=== PATIENT | female | born 1970 | race Hispanic/Latino ===

== ENCOUNTER 2018-01-07 10:11 | Emergency (ER) | payer BC, SELFPAY ==
[2018-01-07] MEDS ORDERED: DEXAMETHASONE 10 MG/ML VIAL ONE (10:58)
[2018-01-07] MEDS ORDERED: CYCLOBENZAPRINE 10 MG TAB ONE (10:58)
[2018-01-07] MEDS ORDERED: MORPHINE 4 MG/ML SYR ONE (10:59)
[2018-01-07] MEDS ORDERED: MEPERIDINE HCL 25 MG/0.5 ML ONE (12:18)
[2018-01-07] MEDS ORDERED: NA CHLORIDE 0.9% 500 ML ONE (12:23)
--- NOTE | 2018-01-07 12:44 | RAD REPORT ---
EXAM DESCRIPTION: RAD - Lumbar Spine 3 Views - 01/07/2018 11:38 am CLINICAL HISTORY: Back pain, lifting injury COMPARISON: None. FINDINGS: A three-view lumbar spine examination was performed. Lumbar bodies are normal in height an d normal in AP alignment. Very minimal left convex curvature may be secondary to muscle spasm. No fra cture or acute bony process seen. No disc space narrowing. No significant facet degenerative change. No pars defects identified. IMPRESSION: Negative Lumbar Spine examination for acute or significant finding.
--- NOTE | 2018-01-07 13:34 | EDPHYS ---
Physician Documentation [facility] Name: Gladis Nunez Age: 47 yrs Sex: Female : 1970 Arrival Date: 01/07/2018 Time: 10:13 Bed 16 Private MD: out of town, doctor ED Physician Mir Benito HPI: 01/07 10:50 This 47 yrs old Female presents to ER via Wheelchair with complaints of Back rn Pain. 10:50 The patient presents with pain that is acute. The symptoms are located in the low back. rn Onset: The symptoms/episode began/occurred yesterday. The pain radiates to the right leg. Associated signs and symptoms: Pertinent positives: numbness, tingling, Pertinent negatives: abdominal pain, fever, incontinence, urinary retention, weakness. Modifying factors: The patient symptoms are alleviated by nothing, the patient symptoms are aggravated by any movement. Severity of symptoms: At their worst the symptoms were moderate, in the emergency department the symptoms are unchanged. The patient has experienced similar episodes in the past. Reports low back pain, intermittent for years, yesterday picked up small pot of water, hurts to move, no bowel/bladder problems, no weakness, + right leg with intermittent numbness and tingling, has happened multiple times in past.. 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 - Social history:: Smoking status: Patient/guardian denies using tobacco. - Ebola Screening: : Patient denies travel to an Ebola-affected area in the 21 days before illness onset. - Family history:: not pertinent. - Hospitalizations: : No recent hospitalization is reported. ROS: 10:50 Constitutional: Negative for fever, chills, and weight loss, Eyes: Negative for injury, rn pain, redness, and discharge, Neck: Negative for injury, pain, and swelling, Cardiovascular: Negative for chest pain, palpitations, and edema, Respiratory: Negative for shortness of breath, cough, wheezing, and pleuritic chest pain, Abdomen/GI: Negative for abdominal pain, nausea, vomiting, diarrhea, and constipation, Back: + back pain MS/Extremity: Negative for injury and deformity, Skin: Negative for injury, rash, and discoloration, Neuro: Negative for headache, weakness, and seizure. Exam: 10:50 Constitutional: This is a well developed, well nourished patient who is awake, alert, rn appears uncomfortable Back: No costovertebral tenderness. Painful ROM, + lower lumbar perispinal tenderness MS/ Extremity: Pulses equal, no cyanosis. Neurovascular intact. Full, normal range of motion. Equal circumference. Neuro: Awake and alert, GCS 15, oriented to person, place, time, and situation. Cranial nerves II-XII grossly intact. Motor strength 5/5 in all extremities. Sensory grossly intact. Vital Signs: 10:35 BP 121 / 75; Pulse 70; Resp 18; Temp 98.1(O); Pulse Ox 98% on R/A; Weight 99.79 kg (R); aj1 Height 5 ft. 8 in. (172.72 cm) (R); Pain 10/10; 11:32 BP 124 / 74; Pulse 63; Resp 17; Pulse Ox 99% on R/A; rb1 12:30 BP 101 / 55; Pulse 58; Resp 18; Pulse Ox 98% on R/A; rb1 13:30 BP 110 / 60; Pulse 66; Resp 19; Pulse Ox 95% on R/A; Pain 5/10; rb1 10:35 Body Mass Index 33.45 (99.79 kg, 172.72 cm) aj1 MDM: 10:37 Patient medically screened. rn 13:32 Differential diagnosis: arthritis, chronic back pain, Fatigue Osteoarthritis ruptured rn disc, sprain. Data reviewed: vital signs, nurses notes, radiologic studies, plain films, and as a result, I will discharge patient. Counseling: I had a detailed discussion with the patient and/or guardian regarding: the historical points, exam findings, and any diagnostic results supporting the discharge/admit diagnosis, radiology results, the need for outpatient follow up, to return to the emergency department if symptoms worsen or persist or if there are any questions or concerns that arise at home. Response to treatment: the patient's symptoms have markedly improved after treatment, and as a result, I will discharge patient. Special discussion: I discussed with the patient/guardian in detail that at this point there is no indication for admission to the hospital. It is understood, however, that if the symptoms persist or worsen the patient needs to return immediately for re-evaluation. Based on the history and exam findings, there is no indication for further emergent testing or inpatient evaluation. I discussed with the patient/guardian the need to see the back specialist for further evaluation of the symptoms. 01/07 10:49 Order name: XRAY Lumbar Spine (3 Views); Complete Time: 12:46 rn 01/07 10:49 Order name: IV Start; Complete Time: 11:08 rn Administered Medications: 10:55 Drug: Flexeril 10 mg Route: PO; rb1 11:30 Follow up: Response: No adverse reaction; Pain is decreased rb1 10:58 Drug: morphine 4 mg Route: IVP; Site: left antecubital; rb1 11:30 Follow up: Response: No adverse reaction; Pain is decreased rb1 10:58 Drug: Decadron - Dexamethasone 10 mg Route: IVP; Site: left antecubital; rb1 11:30 Follow up: Response: No adverse reaction; Pain is decreased rb1 12:22 Drug: NS 0.9% 500 ml Route: IV; Rate: bolus; Site: left antecubital; rb1 13:05 Follow up: IV Status: Completed infusion rb1 14:05 Not Given (BP remained too low to administer per provider.): Demerol 25 mg IVP once rb1 Disposition: 01/07/18 13:34 Discharged to Home. Impression: Low back pain, Muscle spasm of back. - Condition is Stable. - Discharge Instructions: Back Pain, Adult, Muscle Cramps and Spasms. - Prescriptions for Tylenol- Codeine #3 300-30 mg Oral Tablet - take 1 tablet by ORAL route every 6 hours As needed; 20 tablet. Cyclobenzaprine 10 mg Oral Tablet - take 1 tablet by ORAL route every 8 hours As needed; 20 tablet. Medrol (Elvin) 4 mg Oral Tablets, Dose Pack - take 1 tablet by ORAL route as directed - follow package instructions; 1 packet. - Medication Reconciliation Form, Thank You Letter, Antibiotic Education, Prescription Opioid Use form. - Follow up: Private Physician; When: As needed; Reason: Recheck today's complaints, Re-evaluation by your physician. - Problem is an acute exacerbation. - Symptoms have improved. Signatures: Dispatcher [employer] EDYudy Dunn RN RN aj1 Mir Benito MD MD rn Barber, Rebecca RN RN rb1 Corrections: (The following items were deleted from the chart) 14:11 13:34 01/07/2018 13:34 Discharged to Home. Impression: Low back pain; Muscle spasm of rb1 back. Condition is Stable. Forms are Medication Reconciliation Form, Thank You Letter, Antibiotic Education, Prescription Opioid Use. Follow up: Private Physician; When: As needed; Reason: Recheck today's complaints, Re-evaluation by your physician. Problem is an acute exacerbation. Symptoms have improved. rn
--- NOTE | 2018-01-07 13:34 | ER ---
Nurse's Notes [facility] Name: Gladis Nunez Age: 47 yrs Sex: Female : 1970 Arrival Date: 01/07/2018 Time: 10:13 Bed 16 Private MD: out of town, doctor Diagnosis: Low back pain;Muscle spasm of back Presentation: 01/07 10:28 Presenting complaint: Patient states: Yesterday around noon she was picking up a bucket aj1 filled with water and her back gave out and the pain has gotten progressively worse since. Patient states she tried taking Tylenol at home but it isn't helping, and she isn't able to walk because of the pain. Reports tingling in both legs and weakness in the right leg. Transition of care: patient was not received from another setting of care. Onset of symptoms was January 06, 2018 at 12:00. Risk Assessment: Do you want to hurt yourself or someone else? Patient reports no desire to harm self or others. Initial Sepsis Screen: Does the patient meet any 2 criteria? No. Patient's initial sepsis screen is negative. Does the patient have a suspected source of infection? No. Patient's initial sepsis screen is negative. Care prior to arrival: None. 10:28 Method Of Arrival: Wheelchair aj1 10:28 Acuity: MARY 4 aj1 Triage Assessment: 10:33 General: Appears in no apparent distress. uncomfortable, Behavior is calm, cooperative, aj1 appropriate for age. Pain: Complains of pain in mid back area Pain radiates to low back area and sacrum Pain currently is 10 out of 10 on a pain scale. Neuro: Level of Consciousness is awake, alert, obeys commands, Reports weakness in right leg tingling in both legs. Cardiovascular: Patient's skin is warm and dry. Respiratory: Airway is patent Respiratory effort is even, unlabored, Respiratory pattern is regular, symmetrical. Musculoskeletal: Range of motion: limited in left hip and right hip. 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 - Social history:: Smoking status: Patient/guardian denies using tobacco. - Ebola Screening: : Patient denies travel to an Ebola-affected area in the 21 days before illness onset. - Family history:: not pertinent. - Hospitalizations: : No recent hospitalization is reported. Screenin:40 Abuse screen: Denies threats or abuse. Nutritional screening: No deficits noted. rb1 Tuberculosis screening: No symptoms or risk factors identified. Fall Risk None identified. Assessment: 10:40 General: Appears uncomfortable, Behavior is crying. Pain: Complains of pain in right rb1 lower back Pain radiates to right leg Pain currently is 10 out of 10 on a pain scale. Pain began 1 day ago. Neuro: Level of Consciousness is awake, alert, obeys commands, Oriented to person, place, time, situation, Reports dizziness, numbness weakness in right leg. Cardiovascular: Capillary refill < 3 seconds is brisk in bilateral fingers. Respiratory: Airway is patent Respiratory effort is even, unlabored, Respiratory pattern is regular, symmetrical. GI: No signs and/or symptoms were reported involving the gastrointestinal system. : No signs and/or symptoms were reported regarding the genitourinary system. Derm: Skin is dry, Skin is normal, Skin temperature is warm. Musculoskeletal: Range of motion: intact in all extremities. 11:09 Reassessment: pt went to x-ray. rb1 11:30 Reassessment: Patient appears in no apparent distress at this time. Patient and/or rb1 family updated on plan of care and expected duration. Pain level reassessed. Patient is alert, oriented x 3, equal unlabored respirations, skin warm/dry/pink. 12:01 Reassessment: Patient appears in no apparent distress at this time. Patient and/or rb1 family updated on plan of care and expected duration. Pain level reassessed. Patient is alert, oriented x 3, equal unlabored respirations, skin warm/dry/pink. Pt. refused the Demerol at this time, will continue to monitor. 12:13 Reassessment: Notified provider of BP 102/64 before administering the Demerol. Received rb1 order to Hold the Demerol until the pt. SBP >115. 13:00 Reassessment: Patient appears in no apparent distress at this time. No changes from rb1 previously documented assessment. 14:00 Reassessment: Patient appears in no apparent distress at this time. Patient and/or rb1 family updated on plan of care and expected duration. Pain level reassessed. Patient is alert, oriented x 3, equal unlabored respirations, skin warm/dry/pink. at bedside. Vital Signs: 10:35 BP 121 / 75; Pulse 70; Resp 18; Temp 98.1(O); Pulse Ox 98% on R/A; Weight 99.79 kg (R); aj1 Height 5 ft. 8 in. (172.72 cm) (R); Pain 10/10; 11:32 BP 124 / 74; Pulse 63; Resp 17; Pulse Ox 99% on R/A; rb1 12:30 BP 101 / 55; Pulse 58; Resp 18; Pulse Ox 98% on R/A; rb1 13:30 BP 110 / 60; Pulse 66; Resp 19; Pulse Ox 95% on R/A; Pain 5/10; rb1 10:35 Body Mass Index 33.45 (99.79 kg, 172.72 cm) aj1 ED Course: 10:13 Patient arrived in ED. sb2 10:13 out of town, doctor is Private Physician. sb2 10:33 Triage completed. aj1 10:35 Arm band placed on Patient placed in an exam room. aj1 10:37 Mir Benito MD is Attending Physician. rn 10:40 Patient has correct armband on for positive identification. Bed in low position. Call rb1 light in reach. Side rails up X 1. Pulse ox on. NIBP on. 10:41 Maribell Landon, RN is Primary Nurse. rb1 10:58 Inserted saline lock: 22 gauge in left antecubital area, using aseptic technique. rb1 11:38 XRAY Lumbar Spine (3 Views) In Process Unspecified. EDMS 14:00 No provider procedures requiring assistance completed. IV discontinued, intact, rb1 bleeding controlled, No redness/swelling at site. Pressure dressing applied. Administered Medications: 10:55 Drug: Flexeril 10 mg Route: PO; rb1 11:30 Follow up: Response: No adverse reaction; Pain is decreased rb1 10:58 Drug: morphine 4 mg Route: IVP; Site: left antecubital; rb1 11:30 Follow up: Response: No adverse reaction; Pain is decreased rb1 10:58 Drug: Decadron - Dexamethasone 10 mg Route: IVP; Site: left antecubital; rb1 11:30 Follow up: Response: No adverse reaction; Pain is decreased rb1 12:22 Drug: NS 0.9% 500 ml Route: IV; Rate: bolus; Site: left antecubital; rb1 13:05 Follow up: IV Status: Completed infusion rb1 14:05 Not Given (BP remained too low to administer per provider.): Demerol 25 mg IVP once rb1 Outcome: 13:34 Discharge ordered by . rn 14:00 Discharged to home via wheelchair, with family. rb1 14:00 Condition: stable 14:00 Discharge instructions given to patient, Instructed on discharge instructions, follow up and referral plans. medication usage, Demonstrated understanding of instructions, follow-up care, medications, Prescriptions given X 3. 14:00 Patient left the ED. rb1 Signatures: Dispatcher [employer] EDMS Yudy Falcon RN RN aj1 Mir Benito MD MD rn Barber, Rebecca, RN RN rb1 aNncy Samuels sb2 Corrections: (The following items were deleted from the chart) 10:35 10:28 Presenting complaint: Patient states: Yesterday around noon she was picking up a aj1 bucket filled with water and her back gave out and the pain has gotten progressively worse since. Patient states she tried taking Tylenol at home but it isn't helping, and she isn't able to walk because of the pain. aj1 12:01 10:58 Decadron - Dexamethasone 10 mg IVP in left antecubital rb1 rb1 12:01 11:00 Response: No adverse reaction; Pain is decreased rb1 rb1 14:12 14:11 Patient left the ED. rb1 rb1
== END 2018-01-07 14:11 | disposition home or self-care (01) ==
LOC: ER 10:11
DX: M62.830 Muscle spasm of back (principal); K21.9 Gastro-esophageal reflux disease without esophagitis; Z88.0 Allergy status to penicillin; Z88.1 Allergy status to other antibiotic agents
CPT/HCPCS: 72100; 96361; 96374; 96375; 99284; J1100; J2175

== ENCOUNTER 2018-08-10 08:38 | Observation (INO) | payer SELFPAY ==
[2018-08-10] MEDS ORDERED: ONDANSETRON 4 MG/2 ML VIAL ONE (09:21)
[2018-08-10 09:25] LABS: Urine Specific Gravity 1.015 (1.005-1.030)
[2018-08-10 09:26] LABS: Urine Blood 3+ (NEG); Urine Glucose NEGATIVE (NEG); Urine Protein NEGATIVE (NEG); Urine Specific Gravity 1.015 (1.005-1.030); Urine pH 5.5 (5.0-7.0)
[2018-08-10 09:35] LABS: Absolute Lymphocytes (CBC) 2.3 K/uL (0.7-4.9); Absolute Monocytes 0.5 K/uL (0.1-1.3); Absolute Neutrophil 2.4 K/uL (1.8-8.0); Basophils % 0.7 % (0-1.3); Eosinophils % 3.8 % (0-4.4); Hematocrit 43.9 % (36.0-45.0); MPV 11.5 fL (7.6-11.3); RBC Red Blood Cell Count 4.81 M/uL (3.86-4.86)
[2018-08-10 09:41] LABS: Protime INR 1.01
[2018-08-10] MEDS ORDERED: ASPIRIN 81 MG CHEWABLE TABLET ONE (09:41)
[2018-08-10] MEDS ORDERED: FAMOTIDINE 20 MG/2 ML VIAL IV ONE (09:41)
[2018-08-10 09:47] LABS: ALT/SGPT 64 U/L (12-78); AST/SGOT 33 U/L (15-37); Albumin 3.8 g/dL (3.4-5.0); Alkaline Phosphatase 93 U/L (45-117); BUN Blood Urea Nitrogen 11 mg/dL (7-18); Bicarbonate 28 mmol/L (21-32); Bilirubin Direct 0.1 mg/dL (0-0.2); Bilirubin Total 0.5 mg/dL (0.2-1.0); Glucose Level 97 mg/dL (74-106); Magnesium 2.1 mg/dL (1.8-2.4); NT PRO-BNP 22 pg/mL (<125); Potassium 3.8 mmol/L (3.5-5.1); Protein, Total 7.8 g/dL (6.4-8.2); Sodium Level 141 mmol/L (136-145); Troponin (Emerg Dept Use Only) < 0.02 ng/mL (0.0-0.045)
--- NOTE | 2018-08-10 10:29 | RAD REPORT ---
EXAM DESCRIPTION: RAD - Chest Single View - 08/10/2018 10:02 am CLINICAL HISTORY: Chest tightness COMPARISON: January 2016 TECHNIQUE: AP portable chest image was obtained 0929 hours . FINDINGS: Lungs are clear. Heart and vasculature are normal. No measurable pleural effusion and no p neumothorax. No acute bony abnormality seen. No acute aortic findings suspected. IMPRESSION: No acute cardiopulmonary process. No significant interval change.
[2018-08-10] MEDS ORDERED: FENTANYL CITR 100 MCG/2 ML ONE (11:00)
[2018-08-10] MEDS ORDERED: NA CHLORIDE 0.9% 1,000 ML ONE (11:00)
--- NOTE | 2018-08-10 12:25 | ER ---
Nurse's Notes [facility] Name: Gladis Nunez Age: 48 yrs Sex: Female : 1970 Arrival Date: 08/10/2018 Time: 08:41 Bed 6 Private MD: Diagnosis: Chest pain, unspecified Presentation: 08/10 08:53 Presenting complaint: Patient states: CHEST TIGHTNESS WITH DIZZINESS AND SOB. bp Transition of care: patient was not received from another setting of care. Onset of symptoms was August 09, 2018 at 09:00. Risk Assessment: Do you want to hurt yourself or someone else? Patient reports no desire to harm self or others. Initial Sepsis Screen: Does the patient meet any 2 criteria? No. Patient's initial sepsis screen is negative. Does the patient have a suspected source of infection? No. Patient's initial sepsis screen is negative. Care prior to arrival: None. 08:53 Method Of Arrival: Ambulatory bp 08:53 Acuity: MARY 3 bp Triage Assessment: 08:55 General: Appears in no apparent distress. comfortable, Behavior is cooperative, bp appropriate for age, anxious. Pain: Complains of pain in mid-sternal area Quality of pain is described as squeezing. EENT: No deficits noted. Neuro: Level of Consciousness is awake, alert, obeys commands, Oriented to person, place, time, situation, Appropriate for age. Cardiovascular: Rhythm is sinus rhythm. Respiratory: Airway is patent Respiratory effort is even, unlabored, Respiratory pattern is regular, symmetrical. GI: No signs and/or symptoms were reported involving the gastrointestinal system. : No signs and/or symptoms were reported regarding the genitourinary system. Derm: No deficits noted. Musculoskeletal: No deficits noted. 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 - Social history:: Smoking status: Patient/guardian denies using tobacco. - Ebola Screening: : Patient negative for fever greater than or equal to 101.5 degrees Fahrenheit, and additional compatible Ebola Virus Disease symptoms Patient denies exposure to infectious person Patient denies travel to an Ebola-affected area in the 21 days before illness onset No symptoms or risks identified at this time. Screenin:00 Abuse screen: Denies threats or abuse. Denies injuries from another. Nutritional bp screening: No deficits noted. Tuberculosis screening: No symptoms or risk factors identified. Fall Risk None identified. Assessment: 09:00 Pain: Pain does not radiate. Pain began 1 day ago. bp 09:56 Reassessment: ALL CURRENT ORDERS COMPLETED, VS STABLE ON MONITOR. bp Vital Signs: 08:55 BP 129 / 65; Pulse 71; Resp 12; Temp 98; Pulse Ox 100% ; Weight 100.7 kg; Height 5 ft. bp 8 in. (172.72 cm); 09:18 BP 124 / 63 Supine; Pulse 77; Resp 30; Pulse Ox 97% on R/A; dh3 09:20 BP 136 / 79 Sitting; Pulse 80; Resp 14; Pulse Ox 95% on R/A; dh3 09:22 BP 125 / 73 Standing; Pulse 80; Resp 19; Pulse Ox 96% on R/A; dh3 09:55 BP 105 / 51; Pulse 61; Resp 24; Pulse Ox 98% ; bp 10:30 BP 105 / 49; Pulse 68; Resp 15; Pulse Ox 96% ; bp 12:03 BP 110 / 72; Pulse 68; Resp 17; Pulse Ox 96% ; bp 14:00 BP 106 / 44; Pulse 64; Resp 10; Pulse Ox 100% ; bp 08:55 Body Mass Index 33.75 (100.70 kg, 172.72 cm) bp ED Course: 08:41 Patient arrived in ED. mr 08:48 Gavino Vasques RN is Primary Nurse. hj 08:51 Jose Arceo PA is PHCP. cp 08:51 Jose Schaeffer MD is Attending Physician. cp 08:54 Triage completed. bp 08:55 Arm band placed on. bp 09:00 Patient has correct armband on for positive identification. Bed in low position. Call bp light in reach. Side rails up X2. athletic monitor on. Pulse ox on. NIBP on. 09:05 Gavino Vasques RN is Primary Nurse. hj 09:17 Jah Goldman RN is Primary Nurse. bp 09:17 Initial lab(s) drawn, by me, sent to lab. Inserted saline lock: 20 gauge in right dh3 antecubital area, using aseptic technique. Blood collected. 09:21 EKG done, by ED staff, reviewed by Jose CORRALES. at1 09:59 X-ray completed. Portable x-ray completed in exam room. Patient tolerated procedure sw well. 10:02 XRAY Chest (1 view) In Process Unspecified. EDSC 12:24 Africa Medina MD is Hospitalizing Provider. cp 14:09 No provider procedures requiring assistance completed. Patient admitted, IV remains in bp place. Patient maintains SpO2 saturation greater than 95% on room air. Administered Medications: 09:15 Drug: Zofran 4 mg Route: IVP; Site: right antecubital; bp 10:59 Follow up: Response: Nausea is decreased bp 09:20 Drug: Aspirin Chewable Tablet 324 mg Route: PO; bp 10:58 Follow up: Response: No adverse reaction bp 09:20 Drug: Pepcid 20 mg Route: IVP; Site: right antecubital; bp 10:59 Follow up: Response: Nausea is decreased bp 10:50 Drug: NS 0.9% 1000 ml Route: IV; Rate: 1 bolus; Site: right antecubital; bp 14:11 Follow up: IV Status: Completed infusion; IV Intake: 1000ml bp 10:50 Drug: fentaNYL (PF) 25 mcg Route: IVP; Site: right antecubital; bp 14:11 Follow up: Response: No adverse reaction; Pain is decreased bp Intake: 14:11 IV: 1000ml; Total: 1000ml. bp Outcome: 12:25 Decision to Hospitalize by Provider. cp 14:10 Admitted to Tele accompanied by zhang, family with patient, via wheelchair, room 210, bp with chart, Report called to ANTWAN REAVES 14:10 Condition: stable 14:10 Instructed on the need for admit. 14:35 Patient left the ED. bp Signatures: Dispatcher [employer] EDSC Fred Scarlet YanezMya, timber packer EKG Tat1 Sierra Jacques Henry, RN RN Jose Busch PA PA Snehal Gaviria [facility] Jah Goldman, RN RN bp
--- NOTE | 2018-08-10 12:26 | EDPHYS ---
Physician Documentation [facility] Name: Gladis Nunez Age: 48 yrs Sex: Female : 1970 Arrival Date: 08/10/2018 Time: 08:41 Bed 6 Private MD: Jose Pearson HPI: 08/10 09:06 This 48 yrs old Female presents to ER via Ambulatory with complaints of Chest cp Tightness, Shortness Of Breath. 09:06 The patient or guardian reports chest pain that is located primarily in the substernal cp area. Onset: last night. The pain does not radiate. Associated signs and symptoms: Pertinent positives: dizziness, nausea. The chest pain is described as a pressure. 09:06 Duration: The patient or guardian reports multiple episodes, with no pattern. cp BUSINESS INTELLIGENCE ARCHITECT: 08:55 LMP N/A - Irregular menses bp Historical: - Allergies: 08:55 Keflex (Hives); bp 08:55 PENICILLINS (Hives); bp - Home Meds: 08:55 Multiple Vitamins Oral tab daily [Active]; bp - PMHx: 08:55 GERD; Herniated disc; bp - Immunization history:: Adult Immunizations up to date. - Social history:: Smoking status: Patient/guardian denies using tobacco. - Ebola Screening: : Patient negative for fever greater than or equal to 101.5 degrees Fahrenheit, and additional compatible Ebola Virus Disease symptoms Patient denies exposure to infectious person Patient denies travel to an Ebola-affected area in the 21 days before illness onset No symptoms or risks identified at this time. ROS: 09:10 Constitutional: Negative for body aches, chills, fever, poor PO intake. cp 09:10 Eyes: Negative for injury, pain, redness, and discharge. cp 09:10 ENT: Negative for drainage from ear(s), ear pain, sore throat, difficulty swallowing, difficulty handling secretions. 09:10 Cardiovascular: Positive for chest pain, of the mid-sternal area, Negative for edema, palpitations. 09:10 Respiratory: Positive for shortness of breath, Negative for cough, wheezing. 09:10 Abdomen/GI: Positive for nausea, Negative for abdominal pain, vomiting, diarrhea, constipation. 09:10 Back: Negative for pain at rest, pain with movement, radiated pain. 09:10 : Negative for urinary symptoms. 09:10 Skin: Negative for cellulitis, rash. 09:10 Neuro: Positive for dizziness, Negative for altered mental status, headache, syncope, near syncope, weakness. 09:10 All other systems are negative. Exam: 09:05 ECG was reviewed by the Attending Physician. cp 09:15 Constitutional: The patient appears in no acute distress, alert, awake, cp non-diaphoretic, non-toxic, well developed, well nourished. 09:15 Head/Face: Normocephalic, atraumatic. Eyes: Pupils equal round and reactive to light, cp extra-ocular motions intact. Lids and lashes normal. Conjunctiva and sclera are non-icteric and not injected. Cornea within normal limits. Periorbital areas with no swelling, redness, or edema. ENT: Nares patent. No nasal discharge, no septal abnormalities noted. Tympanic membranes are normal and external auditory canals are clear. Oropharynx with no redness, swelling, or masses, exudates, or evidence of obstruction, uvula midline. Mucous membranes moist. 09:15 Neck: External neck: is normal, ROM/movement: is normal, is supple, without pain, no range of motions limitations, no meningismus, no nuchal rigidity. 09:15 Chest/axilla: Inspection: normal, Palpation: is normal, no crepitus, no tenderness. 09:15 Cardiovascular: Rate: normal, Rhythm: regular, Pulses: Pulses are 2+ in right radial artery and left radial artery. Heart sounds: murmur, not appreciated, Edema: JVD: is not appreciated. 09:15 Respiratory: the patient does not display signs of respiratory distress, Respirations: normal, no use of accessory muscles, no retractions, no splinting, no tachypnea, labored breathing, is not present, Breath sounds: are clear throughout, no decreased breath sounds, no stridor, no wheezing. 09:15 Abdomen/GI: Inspection: abdomen appears normal, Bowel sounds: normal, in all quadrants, Palpation: abdomen is soft and non-tender, in all quadrants. 09:15 Back: pain, is absent, ROM is normal. 11:10 ECG was reviewed by the Attending Physician. Vital Signs: 08:55 BP 129 / 65; Pulse 71; Resp 12; Temp 98; Pulse Ox 100% ; Weight 100.7 kg; Height 5 ft. bp 8 in. (172.72 cm); 09:18 BP 124 / 63 Supine; Pulse 77; Resp 30; Pulse Ox 97% on R/A; dh3 09:20 BP 136 / 79 Sitting; Pulse 80; Resp 14; Pulse Ox 95% on R/A; dh3 09:22 BP 125 / 73 Standing; Pulse 80; Resp 19; Pulse Ox 96% on R/A; dh3 09:55 BP 105 / 51; Pulse 61; Resp 24; Pulse Ox 98% ; bp 10:30 BP 105 / 49; Pulse 68; Resp 15; Pulse Ox 96% ; bp 12:03 BP 110 / 72; Pulse 68; Resp 17; Pulse Ox 96% ; bp 14:00 BP 106 / 44; Pulse 64; Resp 10; Pulse Ox 100% ; bp 08:55 Body Mass Index 33.75 (100.70 kg, 172.72 cm) bp MDM: 08:51 Patient medically screened. cp 11:10 Data reviewed: vital signs, nurses notes, lab test result(s), EKG, radiologic studies, cp plain films. Test interpretation: by ED physician or midlevel provider: ECG, plain radiologic studies. 11:10 Response to treatment: the patient's symptoms have markedly improved after treatment, cp VSS. Chest pain improved. Will admit for observation. Physician consultation: Wm CORRALES was called at 11:00, was contacted at 11:00, regarding admission, to the telemetry unit. patient's condition. 08/10 09:04 Order name: Basic Metabolic Panel; Complete Time: 10:36 cp 08/10 10:37 Interpretation: Normal except: CL 108; GFR 78. cp 08/10 09:04 Order name: CBC with Diff; Complete Time: 10:36 cp 08/10 10:37 Interpretation: Normal except: MPV 11.5. cp 08/10 09:04 Order name: LFT's; Complete Time: 10:36 cp 08/10 09:04 Order name: Magnesium; Complete Time: 10:36 cp 08/10 09:04 Order name: NT PRO-BNP; Complete Time: 10:36 cp 08/10 09:04 Order name: PT-INR; Complete Time: 10:36 cp 08/10 09:04 Order name: Troponin (emerg Dept Use Only); Complete Time: 10:36 cp 08/10 09:04 Order name: XRAY Chest (1 view); Complete Time: 10:36 cp 08/10 09:17 Order name: Urine Dipstick--Ancillary (enter results) eb 08/10 09:19 Order name: Urine --Ancillary (enter results); Complete Time: 10:36 eb 08/10 09:04 Order name: EKG; Complete Time: 09:05 cp 08/10 09:04 Order name: Cardiac monitoring; Complete Time: 09:05 cp 08/10 09:04 Order name: EKG - Nurse/Tech; Complete Time: 09:05 cp 08/10 09:04 Order name: IV Saline Lock; Complete Time: 09:16 cp 08/10 09:04 Order name: Labs collected and sent; Complete Time: 09:16 cp 08/10 09:04 Order name: O2 Per Protocol; Complete Time: 09:16 cp 08/10 09:04 Order name: O2 Sat Monitoring; Complete Time: 09:16 cp 08/10 09:05 Order name: Urine Dipstick-Ancillary (obtain specimen); Complete Time: 09:16 cp 08/10 09:05 Order name: Urine Test (obtain specimen); Complete Time: 09:16 cp 08/10 09:05 Order name: Orthostatics; Complete Time: 09:16 cp 08/10 10:42 Order name: EKG; Complete Time: 10:42 cp 08/10 10:42 Order name: EKG - Nurse/Tech; Complete Time: 10:59 cp 08/10 12:36 Order name: CONS Physician Consult EDMS EC:05 Rate is 76 beats/min. Rhythm is regular. [place] interval is normal. QRS interval is normal. cp QT interval is normal. T waves are Inverted in lead III. Interpreted by me. Reviewed by me. 11:10 Rate is 68 beats/min. Rhythm is regular. [place] interval is normal. QRS interval is normal. cp QT interval is normal. T waves are Inverted in lead III. Interpreted by me. Reviewed by me. Administered Medications: 09:15 Drug: Zofran 4 mg Route: IVP; Site: right antecubital; bp 10:59 Follow up: Response: Nausea is decreased bp 09:20 Drug: Aspirin Chewable Tablet 324 mg Route: PO; bp 10:58 Follow up: Response: No adverse reaction bp 09:20 Drug: Pepcid 20 mg Route: IVP; Site: right antecubital; bp 10:59 Follow up: Response: Nausea is decreased bp 10:50 Drug: NS 0.9% 1000 ml Route: IV; Rate: 1 bolus; Site: right antecubital; bp 14:11 Follow up: IV Status: Completed infusion; IV Intake: 1000ml bp 10:50 Drug: fentaNYL (PF) 25 mcg Route: IVP; Site: right antecubital; bp 14:11 Follow up: Response: No adverse reaction; Pain is decreased bp Disposition: 08/10/18 12:25 Hospitalization ordered by Africa Medina for Observation. Preliminary diagnosis is Chest pain, unspecified. - Bed requested for Telemetry/MedSurg (observation). - Status is Observation. bp - Condition is Stable. - Problem is new. - Symptoms have improved. UTI on Admission? No Addendum: 08/13/2018 07:08 Co-signature as Attending Physician, Jose Schaeffer MD I agree with the assessment and c vega plan of care. Signatures: Dispatcher [employer] EDME Jose Schaeffer MD MD cha Page, Corey, PA PA cp Jah Goldman, RN RN bp Vanesa Alberto Corrections: (The following items were deleted from the chart) 08/10 13:16 12:25 Hospitalization Ordered by Africa Medina MD for Observation. Preliminary diagnosis eb is Chest pain, unspecified. Bed requested for Telemetry/MedSurg (observation). Status is Observation. Condition is Stable. Problem is new. Symptoms have improved. UTI on Admission? No. cp 14:35 13:16 08/10/2018 12:25 Hospitalization Ordered by Africa Medina MD for Observation. bp Preliminary diagnosis is Chest pain, unspecified. Bed requested for Telemetry/MedSurg (observation). Status is Observation. Condition is Stable. Problem is new. Symptoms have improved. UTI on Admission? No. eb
--- NOTE | 2018-08-10 12:46 | P.HP ---
Certification for Inpatient Patient admitted to: Observation With expected LOS: <2 Midnights Patient will require the following post-hospital care: None Practitioner: I am a practitioner with admitting privileges, knowledge of patient current condition, hospital course, and medical plan of care. Services: Services provided to patient in accordance with Admission requirements found in Title 42 Section 412.3 of the Code of Federal Regulations Patient History Date of Service: 08/10/18 Primary Care Provider: [facility] Reason for admission: Chest Pain History of Present Illness: This is a 48 y/o F with history of SC, High cholesterol and GERD. Stated that she started to have indigestion last night that was not settled by her medications. Had chest pressure this AM that woke her from sleep. No radiation, n/v, diaphoresis. Came to hospital for evaluation at that time. ECG and first troponin negative. Patient feeling better but still with chest pressure that comes and goes. Allergies cephalexin monohydrate [From Keflex] Allergy (Unverified 05/20/14 01:56) Unknown Penicillins Allergy (Unverified 05/20/14 01:56) Unknown Home medications list reviewed: Yes - Past Medical/Surgical History Has patient received pneumonia vaccine in the past: No Diabetic: No -: GERD -: High Cholesterol -: SC -: -: Cholecystectomy - Social History Smoking Status: Never smoker Smoking therapy provided: No Alcohol use: No CD- Drugs: No Caffeine use: Yes Place of Residence: Home Review of Systems General: Unremarkable Eyes: Unremarkable ENT: Unremarkable Respiratory: Unremarkable Cardiovascular: Chest Pain Gastrointestinal: Unremarkable Musculoskeletal: Unremarkable Integumentary: Unremarkable Neurological: Unremarkable Lymphatics: Unremarkable Physical Examination - Vital Signs Temperature: 98.3 F Blood Pressure: 113/67 Pulse: 86 Respirations: 16 Pulse Ox (%): 98 - Physical Exam General: Alert, In no apparent distress HEENT: Normocephalic, PERRLA, Mucous membr. moist/pink Neck: Supple, 2+ carotid pulse no bruit, No Thyromegaly Respiratory: Clear to auscultation bilaterally, Normal air movement Cardiovascular: No edema, Normal pulses, Regular rate/rhythm, Normal S1 S2, No gallops, No rubs Capillary refill: <2 Seconds Gastrointestinal: Normal bowel sounds, Soft and benign, Non-distended, No tenderness, No masses, No rebound, No guarding Musculoskeletal: No clubbing, No swelling, No contractures, No erythema, No tenderness, No warmth Integumentary: No rashes, No breakdown, No significant lesion, No tenderness/ swelling, No erythema, No warmth, No cyanosis Neurological: Normal speech, Normal strength at 5/5 x4 extr, Normal tone, Sensation intact, Cranial nerves 3-12 intact, Normal reflexes 2+, Normal affect - Studies Laboratory Data (last 24 hrs) 08/10/18 09:15: PT 11.9, INR 1.01 08/10/18 09:15: WBC 5.4, Hgb 14.6, Hct 43.9, Plt Count 175 08/10/18 09:15: Sodium 141, Potassium 3.8, BUN 11, Creatinine 0.79, Glucose 97, Magnesium 2.1, Total Bilirubin 0.5, AST 33, ALT 64, Alkaline Phosphatase 93 Assessment and Plan - Problems (Diagnosis) (1) Chest pain at rest Current Visit: Yes Status: Acute Plan: Control pain. Assess vitals and ECG. Monitor Troponin levels. Consulted Cardiology for further evaluation (2) GERD (gastroesophageal reflux disease) Current Visit: Yes Status: Chronic (3) Hypercholesteremia Current Visit: Yes Status: Chronic Discharge Plan: Home Plan to discharge in: 24 Hours - Advance Directives Does patient have a Living Will: No Does patient have a Durable POA for Healthcare: No - Code Status/Comfort Care Code Status Assessed: Yes Code Status: Full Code
[2018-08-10] MEDS ORDERED: MORPHINE 2 MG/ML SYR IV PRN (15:19)
[2018-08-10] MEDS ORDERED: ONDANSETRON 4 MG/2 ML VIAL IV PRN (15:19)
[2018-08-10 15:33] VITALS: BMI 34.8
[2018-08-10 15:58] LABS: HDL Cholesterol 61 mg/dL (40-60); LDL, Direct 103 mg/dL (100-129)
[2018-08-10] MEDS ORDERED: INFLUENZA VACCINE (for 3y+) 0.5 ML DOSE IMVAC ONE (16:00)
[2018-08-11 06:26] LABS: Potassium 4.4 mmol/L (3.5-5.1)
[2018-08-11 06:30] LABS: Absolute Lymphocytes (CBC) 2.1 K/uL (0.7-4.9); Absolute Monocytes 0.5 K/uL (0.1-1.3); Absolute Neutrophil 3.2 K/uL (1.8-8.0); Basophils % 0.5 % (0-1.3); Eosinophils % 3.1 % (0-4.4); Hematocrit 39.6 % (36.0-45.0); MPV 11.8 fL (7.6-11.3); RBC Red Blood Cell Count 4.32 M/uL (3.86-4.86)
[2018-08-11] MEDS ORDERED: ASPIRIN EC 81 MG TAB PO SCH (09:00)
[2018-08-11] MEDS ORDERED: PANTOPRAZOLE 40 MG INJ IVP SCH (09:00)
--- NOTE | 2018-08-11 09:21 | EKG ---
Test Date: 2018-08-10 Test Time: 22:12:39 Care Professionals: RT-O MEASUREMENT RESULTS: Intervals: Rate: 69 HI: 172 QRSD: 86 QT: 396 QTc: 424 [place]: P: 42 HI: 172 QRS: 32 T: 31 INTERPRETIVE STATEMENTS: Normal sinus rhythm Normal ECG Compared to ECG 08/10/2018 11:01:36 No significant changes Electronically Signed On 08-11-18 09:21:09 CDT by Severo Mayorga
--- NOTE | 2018-08-11 09:25 | EKG ---
Test Date: 2018-08-10 Test Time: 11:01:36 Solar Installer Technician: JUAN MEASUREMENT RESULTS: Intervals: Rate: 68 NC: 168 QRSD: 84 QT: 402 QTc: 427 [place]: P: 32 NC: 168 QRS: 14 T: 9 INTERPRETIVE STATEMENTS: Normal sinus rhythm Normal ECG Compared to ECG 08/10/2018 08:57:34 No significant changes Electronically Signed On 08-11-18 09:22:01 CDT by Severo Mayorga
--- NOTE | 2018-08-11 09:26 | EKG ---
Test Date: 2018-08-10 Test Time: 08:57:34 Clinical Geneticist: ARLIN MEASUREMENT RESULTS: Intervals: Rate: 76 WA: 168 QRSD: 84 QT: 372 QTc: 418 Ola: P: 35 WA: 168 QRS: 13 T: 18 INTERPRETIVE STATEMENTS: Normal sinus rhythm Normal ECG Compared to ECG 01/12/2017 15:07:19 No significant changes Electronically Signed On 08-11-18 09:22:12 CDT by Severo Mayorga
[2018-08-11 09:33] VITALS: TEMP 97.3
[2018-08-11] MEDS ORDERED: SODIUM CHLORIDE 0.9% 10ML INJ IV PRN (09:34)
[2018-08-11 13:32] VITALS: BP 113/56
[2018-08-11 15:30] VITALS: O2SAT 99
--- NOTE | 2018-08-11 17:21 | DS ---
Date of Discharge: 08/11/2018 Stage Driver: Dr. Mayorga. Procedures: None. Discharge Diagnoses: 1.Chest pain, ACS ruled out. 2.Gastroesophageal reflux disease. 3.Mixed hyperlipidemia. 4.Obesity, BMI 34.8. Hospital Course: The patient is a 48-year-old female, who has a history of NV, high cholesterol, and GERD, comes in with indigestion. The patient was admitted for chest pain, which was another one of her symptoms. She was started on chest pain guidelines. Cardiac enzymes were obtained and ACS was r uled out. The patient was seen by Cardiology and Dr. Mayorga, who felt that the patient's symptoms w ere more related to gastroesophageal reflux disease. Repeat EKGs did not show any changes. Her card iac enzymes were negative. She was then cleared from Cardiology standpoint. Upon further investigat ion, the patient does report that her 14-year-old daughter has been bullied at school by her best fri end and had a couple of attempts of suicide and therefore patient has been very anxious regarding her daughter. It is possible that the patient was also having some anxiety and panic attacks leading to chest pain and other symptoms. The patient was counseled regarding seeking psychiatric care once di scharged from the hospital for generalized anxiety disorder. At this time, she did not wish to start any medications for her anxiety. The patient does follow with GI physician, Dr. Mercedes, who perfo rmed a recent endoscopy. The patient will need to follow up with Dr. Mercedes for repeat endoscopy t o see improvement in her gastroesophageal reflux symptoms. The patient was then discharged to home i n a stable condition. She was doing well. Her dizziness and chest pain have resolved. She was able to ambulate without any difficulty, tolerating her diet. Medications: As per medication reconciliation list. Followup: Follow up with primary care physician in 2-3 days. Follow up with snap attacher, Dr. Idalia khan in 2 weeks. Establish care with Psychiatry as outpatient. Return to ER for worsening condition. Diet: Heart healthy. Activity: As tolerated. Physical Examination: General: Awake, alert, and oriented x3. No acute distress, obese female. CV: S1-S2, no murmurs. Respiratory: Moving air well bilaterally, no wheezing. Gastrointestinal: Abdomen is soft, nontender , nondistended. Positive bowel sounds. Extremities: No clubbing, cyanosis, or edema. Neurologic: Nonfocal. SA/MODL Voice ID: [id number] Report ID: [id number]
--- NOTE | 2018-08-11 20:09 | CON ---
Date of Consultation: 08/11/[address] Mullins' service on 08/10/2018, I saw the patient on 08/11/2018. Reason For Consultation: Chest pain. History Of Present Illness: Ms. Nunez is a 48-year-old woman with history of herni ated disk and gastroesophageal reflux disease before, has had an endoscopy in the past by Dr. Missy ambrosio. She actually sees Dr. Rey at the [facility]. Came in with substernal chest pressure radia ting to the back with some nausea that had been going on for about 48 hours without any vomiting, PND , orthopnea, pedal edema, palpitations, or syncope. By the time, I saw her she had already had a nor mal EKG, normal CPK-MBs, normal troponin, and normal BNP. She continues to have symptoms now. Her r hythm is normal. Allergies: SHE IS ALLERGIC TO PENICILLIN AND CEPHALEXIN. Review of Systems: Negative. Social History: Negative. Family History: Negative. Medications: At home include Prilosec. Physical Examination: General: She weighed 229 pounds. HEENT: Negative. Neck: Supple with no bruit. Chest: Clear. Cardiac: Revealed a regular rhythm and rate. No murmurs, gallops, or rubs. Abdomen: Benign. Extremities: Revealed no clubbing, cyanosis, or edema. Diagnostic Data: All normal. Impression And Plan: 1.Substernal chest pressure radiating to the back, worse when she lays flat, going on for 48 hours. Normal EKG normal CPK-MB, troponin, as well as BNP. This is not an acute coronary syndrome. This i s definitely a reflux or esophagitis related. I would definitely consider changing her Prilosec or m aybe doubling the dose. Certainly, a GI consultation is appropriate. There may be some component of anxiety. Ms. Nunez was crying when I walked into the room. I do not recommend any specific card iac testing at this point. Certainly, an outpatient stress test may be reasonable on her. ADRIANE/KOTAL Voice ID: [id number] Report ID: [id number]
== END 2018-08-11 15:30 | disposition home or self-care (01) ==
LOC: ER 08:38 → ERHOLD 12:34 → 2ND 14:17
PROVIDERS: ADMIT Family Medicine; ATTEND Family Medicine
DX: R07.9 Chest pain, unspecified (principal); K21.9 Gastro-esophageal reflux disease without esophagitis; E78.2 Mixed hyperlipidemia; E66.9 Obesity, unspecified; Z68.34 Body mass index [BMI] 34.0-34.9, adult; E78.00 Pure hypercholesterolemia, unspecified; Z23 Encounter for immunization; I25.2 Old myocardial infarction; Z88.0 Allergy status to penicillin
CPT/HCPCS: 36415; 71045; 80048; 80076; 81003; 81025; 83718; 83735; 83880; 84478; 84484; 85025; 85610; 93005; 96361; 96374; 96375; 99285; C9113; G0008; G0378; J2270; J2405; J3010; J7030; Q2035